=== PATIENT | male | born 1945 ===

== ENCOUNTER 2018-06-14 11:52 | Emergency (ER) | payer MEDICARE, MEDICAID ==
[2018-06-14 12:27] VITALS: BMI 29.2
--- NOTE | 2018-06-14 13:08 | ED PDOC ---
Lower Extremity Pain/Injury Time Seen by Provider: 06/14/18 12:10 Chief Complaint (Nursing): Lower Extremity Problem/Injury Chief Complaint (Provider): Lower Extremity Problem/Injury History Per: Patient History/Exam Limitations: no limitations Onset/Duration Of Symptoms: Days (past several days) Additional Complaint(s): Lawrence Rosenthal is a 72 year old male with a past medical history of HTN and herniated disc with back pain for past x30 years, who presents to the emergency department with lower back pain/left buttock pain, onset past several days. Patient also states to have intermittent episodes of sciatica. He reports that pain began x2 weeks ago but it got worse over the past x3 days. Pain is described to be going from lower back to left buttock to bottom of his left leg with paresthesias. Patient states he has had no relief after taking advil, aspirin and tylenol with last intake around 02:00. He further reports that pain has been keeping him up at night and that it hurts when he wakes up. Patient denies taking medications today, or experiencing any headaches or visual changes. He denies any history of HLD, diabetes, CAD, CVA or TIA. PMD: Maylin Cardenas Past Medical History Reviewed: Historical Data, Nursing Documentation, Vital Signs - Medical History PMH: HTN Denies: CVA, Diabetes, Hyperlipidemia, TIA - Surgical History Other surgeries: herniated disc - Family History Family History: States: Unknown Family Hx - Home Medications Home Medications: Ambulatory Orders Medication Instructions Recorded Cyclobenzaprine [Cyclobenzaprine 10 mg PO Q8 PRN 5 Days tab 06/14/18 HCl] Naproxen 500 mg PO BID PRN 7 Days tablet 06/14/18 - Allergies Allergies/Adverse Reactions: Allergies Allergy/AdvReac Type Severity Reaction Status Date / Time No Known Allergies Allergy Verified 04/08/16 11:03 Review of Systems ROS Statement: Except As Marked, All Systems Reviewed And Found Negative Eyes: Negative for: Vision Change Musculoskeletal: Positive for: Back Pain (lower), Leg Pain (left ), Other (buttock pain) Neurological: Positive for: Other (paresthesias). Negative for: Headache Physical Exam - Reviewed Nursing Documentation Reviewed: Yes Vital Signs Reviewed: Yes - Physical Exam Appears: Positive for: Uncomfortable Head Exam: Positive for: ATRAUMATIC, NORMOCEPHALIC Skin: Positive for: Normal Color, Warm, Dry Neck: Positive for: Normal, Painless ROM, Supple Cardiovascular/Chest: Positive for: Regular Rate, Rhythm. Negative for: Murmur Respiratory: Positive for: Normal Breath Sounds. Negative for: Respiratory Di stress Pulses-Dorsalis Pedis (L): 2+ Pulses-Dorsalis Pedis (R): 2+ Back: Positive for: Vertebral Tenderness (Pain on palpation of his lumbar spine with radiation of pain from left buttock to medial left leg) Extremity: Positive for: Capillary Refill (less than 3 seconds), Other (sensation is intack on right foot; mildly decreased on the left; strength is also equal bilaterally for upper extremities). Negative for: Normal ROM (Lower extremities: decreased ROM with abduction and flexion at the hip ) Neurologic/Psych: Positive for: Alert, Oriented (x3) Medical Decision Making Medical Decision Making: Initial Time: 12:28 Initial Plan: --Clonidine 0.2 mg PO x1 --Toradol 30 mg IM x1 --Flexeril 10 mg PO x1 Scribe Attestation: Documented by Hernán Montalvo, acting as a scribe for Brooklyn Mcqueen PA-C. Provider Scribe Attestation: All medical record entries made by the Scribe were at my direction and personally dictated by me. I have reviewed the chart and agree that the record accurately reflects my personal performance of the history, physical exam, medical decision making, and the department course for this patient. I have also personally directed, reviewed, and agree with the discharge instructions and disposition. Disposition - Clinical Impression Clinical Impression: Sciatica - Patient ED Disposition Is Patient to be Admitted: No - Disposition Referrals: Betzaida Solis MD [IM] - Nader Sterling MD [Staff Provider] - Disposition: Routine/Home Disposition Time: 15:40 Condition: STABLE Additional Instructions: Rest, perform sciatica exercises, use Naproxen and Flexeril for pain relief fairly regularly for the next few days. Be aware that Flexeril may make you sleepy so avoid driving or operating heavy machinery while using it. Prescriptions: Cyclobenzaprine [Cyclobenzaprine HCl] 10 mg PO Q8 PRN 5 Days tab PRN Reason: Pain, Moderate (4-7) Naproxen 500 mg PO BID PRN 7 Days tablet PRN Reason: Pain, Moderate (4-7) Instructions: Sciatica (DC), Sciatica Exercises Forms: [facility] (Nigerien) Print Language: NEPALESE
[2018-06-14 14:41] VITALS: RESP 18; O2SAT 99
[2018-06-14 16:22] VITALS: BP 164/96; PULSE 64; TEMP 98.4
== END 2018-06-14 16:23 | disposition home or self-care (01) ==
LOC: H.ER 11:52
DX: M54.32 Sciatica, left side (principal)
CPT/HCPCS: 82948; 96372; 99283; J1885

== ENCOUNTER 2018-06-23 08:14 | Emergency (ER) | payer MEDICARE, MEDICAID ==
[2018-06-23 08:14] VITALS: BMI 29.2
[2018-06-23 08:16] VITALS: RESP 17; O2SAT 97
[2018-06-23] MEDS ORDERED: Dexamethasone 4 mg/1 ml IM ONE (09:20)
[2018-06-23] MEDS ORDERED: Lidocaine 5% Patch TD STA (09:20)
[2018-06-23] MEDS ORDERED: Dexamethasone 4 mg/1 ml ONE (10:01)
[2018-06-23] MEDS ORDERED: Lidocaine 5% Patch TD ONE (10:02)
--- NOTE | 2018-06-23 12:07 | ED PDOC ---
Lower Extremity Pain/Injury Time Seen by Provider: 06/23/18 09:09 Chief Complaint (Nursing): Lower Extremity Problem/Injury Chief Complaint (Provider): Lower Extremity Problem/Injury History Per: Patient History/Exam Limitations: no limitations Onset/Duration Of Symptoms: Days (x 9) Current Symptoms Are (Timing): Still Present Additional Complaint(s): 72 year old male with a history of sciatica presents to the ED with sharp back pain that radiates down left leg. Patient was seen in this ED 9 days ago with the same symptoms which are consistent with sciatica. He reports taking Naprosyn, Meloxicam and Flexeril with no relief. Note, blood pressure is typically elevated as per review of previous visits and patient is asymptomatic. States he urinates regularly. Denies urinary symptoms, weakness, numbness, difficulty ambulating and incontinence. PMD: Dr. Erica Cardenas Past Medical History Reviewed: Historical Data, Nursing Documentation, Vital Signs Vital Signs: Last Vital Signs Temp 98.1 F 06/23/18 08:16 Pulse 95 H 06/23/18 08:16 Resp 17 06/23/18 08:16 BP 175/112 H 06/23/18 08:16 Pulse Ox 97 06/23/18 08:16 - Medical History PMH: HTN Denies: CVA, Diabetes, Hyperlipidemia, TIA Other PMH: sciatica - Surgical History Surgical History: No Surg Hx - Family History Family History: States: Unknown Family Hx - Home Medications Home Medications: Ambulatory Orders Medication Instructions Recorded Cyclobenzaprine [Cyclobenzaprine 10 mg PO Q8 PRN 5 Days tab 06/14/18 HCl] Naproxen 500 mg PO BID PRN 7 Days tablet 06/14/18 Lidocaine 5% [Lidoderm] 1 each TP DAILY PRN #5 patch 06/23/18 traMADol [Ultram] 50 mg PO TID PRN #15 tab 06/23/18 - Allergies Allergies/Adverse Reactions: Allergies Allergy/AdvReac Type Severity Reaction Status Date / Time No Known Allergies Allergy Verified 06/23/18 08:24 Review of Systems ROS Statement: Except As Marked, All Systems Reviewed And Found Negative Musculoskeletal: Positive for: Back Pain, Leg Pain (left) Physical Exam - Reviewed Nursing Documentation Reviewed: Yes Vital Signs Reviewed: Yes - Physical Exam Appears: Positive for: Non-toxic, No Acute Distress Head Exam: Positive for: ATRAUMATIC, NORMAL INSPECTION, NORMOCEPHALIC Skin: Positive for: Normal Color, Warm, Dry Eye Exam: Positive for: EOMI, Normal appearance, PERRL Neck: Positive for: Normal, Painless ROM, Supple Cardiovascular/Chest: Positive for: Regular Rate, Rhythm. Negative for: Murmur Respiratory: Positive for: Normal Breath Sounds. Negative for: Respiratory Distress Pulses-Femoral (L): 2+ Pulses-Femoral (R): 2+ Gastrointestinal/Abdominal: Positive for: Normal Exam, Soft. Negative for: Tenderness Back: Positive for: Normal Inspection, Other (left lower lumbar hypertenacity) Extremity: Positive for: Tenderness (left buttock tenderness), Other (pain with flexion of left leg ). Negative for: Normal ROM Neurologic/Psych: Positive for: Alert, Oriented, Gait (steady). Negative for: Motor/Sensory Deficits, Aphasia - ECG O2 Sat by Pulse Oximetry: 97 (RA) Pulse Ox Interpretation: Normal Medical Decision Making Medical Decision Makin:20 Impression: back and left leg pain Initial Plan: Initiated non-opioid pain control at this time. 11:50 --On reevaluation, patient reports improvement of symptoms and minimized pain. Will discharged with tramadol. Follow up during scheduled appointment with neurologist on June 30. Scribe Attestation: Documented by Marycruz Capps acting as a scribe for Tr Mota III DO Provider Scribe Attestation: All medical record entries made by the Scribe were at my direction and personally dictated by me. I have reviewed the chart and agree that the record accurately reflects my personal performance of the history, physical exam, medical decision making, and the department course for this patient. I have also personally directed, reviewed, and agree with the discharge instructions and disposition. Disposition - Clinical Impression Clinical Impression: Sciatic neuralgia - Disposition Disposition: Routine/Home Disposition Time: 11:50 Condition: FAIR Additional Instructions: See Dr Cardenas and neurologist as scheduled for back pain. You may need other tests, like an MRI, performed. Return to ER for any new or worsening symptoms. Prescriptions: Lidocaine 5% [Lidoderm] 1 each TP DAILY PRN #5 patch PRN Reason: Pain, Moderate (4-7) traMADol [Ultram] 50 mg PO TID PRN #15 tab PRN Reason: Pain, Moderate (4-7) Instructions: Sciatica (DC) Forms: [facility] (Slovenian) Print Language: NIUEAN
[2018-06-23 18:53] VITALS: BP 156/72; PULSE 74; TEMP 97.6
== END 2018-06-23 11:40 | disposition home or self-care (01) ==
LOC: H.ER 08:14
DX: M54.32 Sciatica, left side (principal)
CPT/HCPCS: 96372; 99283; J1100; J1885